=== PATIENT | female | born 2000 | race Caucasian/White ===

== ENCOUNTER 2021-06-01 10:12 | Inpatient (IN) | payer OTHER, SELFPAY ==
[~2021-06-01] VITALS: Ht 170.2 cm; Wt 70.3 kg
[2021-06-01 10:16] VITALS: BP 119/22
--- NOTE | 2021-06-01 10:39 | NUR ---
PATIENT PRESENTS TO ED WITH RUQ ABD PAIN RADIATING TO RIGHT FLANK AREA X10 DAYS . PATIENT DENIES ANY UTI SYMPTOMS SUCH DYSURIA OR FOUL SMELLING URINE .PATIENT IS ALSO EXPERIENCING A GENERALIZED BODY RASH X5 DAYS. DENIES N/V/D; ; AAOX4 WITH EVEN AND STEADY GAIT; LUNGS CLEAR BL; HR EVEN AND REGULAR; PT DENIES ANY FEVER, CP, SOB, OR COUGH AT THIS TIME; PATIENT STATES PAIN OF 6/10 AT THIS TIME; VSS; PATIENT POSITIONED FOR COMFORT; HOB ELEVATED; BEDRAILS UP X2; BED DOWN. ER MD MADE AWARE OF PT STATUS.
--- NOTE | 2021-06-01 10:48 | NUR ---
Dr. Nixon is evaluating the patient at bedside.
[2021-06-01] MEDS ORDERED: MORPHINE SULFATE 4 MG/ML SYR IVP ONE (10:50)
[2021-06-01] MEDS ORDERED: diphenhydrAMINE 50 MG/ML VIAL IVP ONE (10:50)
[2021-06-01] MEDS ORDERED: ONDANSETRON 4 MG/2 ML VIAL IVP ONE (10:50)
[2021-06-01 11:39] LABS: BASOPHILS % (AUTO) 0.4 % (0.0-2.0); EOSINOPHILS # (AUTO) 0.2 K/uL (0-0.4); EOSINOPHILS % (AUTO) 3.1 % (0.0-4.0); HEMATOCRIT 37.2 % (36-48); HEMOGLOBIN 12.7 g/dL (12.0-16.0); LYMPHOCYTES # (AUTO) 2.4 K/uL (2.5-16.5); LYMPHOCYTES % (AUTO) 43.9 % (20.5-51.1); MEAN CORPUSCULAR HEMOGLOBIN 30 pg (27-31); MEAN CORPUSCULAR HGB CONC 34 g/dL (33-37); MEAN CORPUSCULAR VOLUME 87.3 fL (80-94); MONOCYTES # (AUTO) 0.5 K/uL (0.8-1.0); MONOCYTES % (AUTO) 8.7 % (1.7-9.3); NEUTROPHILS # (AUTO) 2.4 K/uL (1.8-7.7); NEUTROPHILS % (AUTO) 43.9 % (42.2-75.2); PLATELET COUNT (AUTO) 250 K/uL (140-450); RED BLOOD CELL COUNT(AUTO) 4.26 MIL/uL (4.20-5.40); RED CELL DISTRIBUTION WIDTH 13.5 % (11.6-13.7); WHITE BLOOD COUNT (AUTO) 5.5 K/uL (4.8-10.8)
[2021-06-01 12:03] LABS: CARBON DIOXIDE 25.8 mmol/L (21-32); CREATININE 0.8 mg/dL (0.6-1.3); POTASSIUM 3.8 mmol/L (3.5-5.1)
[2021-06-01 12:18] LABS: ALBUMIN 3.5 g/dL (3.4-5.0)
[2021-06-01] MEDS ORDERED: cefTRIAXone 1,000 MG VIAL ONE (12:22)
--- NOTE | 2021-06-01 13:10 | NUR ---
PATIENT TAKEN TO CT AT THIS TIME
--- NOTE | 2021-06-01 13:18 | NUR ---
Patient returned from CT scan. RN reevaluating the patient at bedside.
[2021-06-01] MEDS ORDERED: ACETAMINOPHEN 325 MG TAB PO PRN (13:55)
[2021-06-01] MEDS ORDERED: KCL 20 MEQ/WATER INJ PREMIX 200 ML IV PRN (13:55)
[2021-06-01] MEDS ORDERED: MAGNESIUM OXIDE 400 MG TAB PO PRN (13:55)
[2021-06-01] MEDS ORDERED: MAG SULF 2000 MG/WATER PREMIX 50 ML IV PRN (13:55)
[2021-06-01] MEDS ORDERED: POTASSIUM CHLORIDE 10 MEQ TABER PO PRN (13:55)
[2021-06-01 14:42] LABS: APPEARANCE,URINE CLEAR (CLEAR); BILIRUBIN,URINE NEGATIVE (NEGATIVE); BLOOD, URINE NEGATIVE (NEGATIVE); COLOR,URINE YELLOW (YELLOW); LEUKOCYTE ESTERASE ,URINE NEGATIVE (NEGATIVE); NITRITE, URINE NEGATIVE (NEGATIVE); PH,URINE 5.5 (5.0-9.0); UGLUCOSE NEGATIVE (NEGATIVE)
--- NOTE | 2021-06-01 15:13 | NUR ---
RECEIVED TELEPHONE REPORT FROM ER NURSE FOR CONTINUITY OF CARE. PER ER NURSE, PT ALERT ORIENTED, NO PAST MEDICAL HISTORY. CC WITH RUQ PAIN RADIATED TO RIGHT FLANK X 10 DAYS. SKIN INTACT. IV TO LEFT AC 20G. GENERALIZED ITCHINESS ALL OVER THE BODY. BENADRYL, MORPHINE AND ZOFRAN GIVEN IN ER. WILL CHECK THE PATIENT WHEN PT ARRIVES.
--- NOTE | 2021-06-01 15:17 | NUR ---
Patient will be admitted to care of [facility]. Admited to [facility]. Will go to room 120. Belongings list completed. Report to FRANK BENAVIDEZ.
[2021-06-01 15:25] VITALS: BP 119/76
--- NOTE | 2021-06-01 15:25 | NUR ---
PATIENT ARRIVED THE FLOOR BY WHEELCHAIR, AT SIDE. PT AAOX4. RESPIRATORY EVEN UNLABORED ON RA. ABDOMEN TENDER, RIGHT UPPER QUADRANT MILD PAIN, NO PAIN MED NEEDED AT THIS TIME PER PT. SKIN WARM AND DRY, ITCHINESS, JAUNDICE. SCRATCHED NOTED AT LEFT ARM R/T ITCHINESS. IV TO LEFT AC 20G DRY AND CLEAN, PATENT. AMBULATORY. ORIENTED PATIENT TO THE HOSPITAL ENVIRONMENT, CALL LIGHT. VERBALIZED UNDERSTANDING. INFORMED PATIENT REGARDING THE NPO STATUS. MRSA NARES SAMPLE COLLECTED. V/S TAKEN. SAFETY MEASURES IN PLACE, WILL CONTINUE TO MONITOR.
[2021-06-01] MEDS: NACL 0.9% 1,000 ML IV SCH (15:59)
--- NOTE | 2021-06-01 17:25 | NUR ---
PATIENT CONCERNS ABOUT THE PLAN OF CARE. PER PATIENT, [facility] AND NO PROCEDURE DONE AND WAS SENT HOME. INFORMED DR. BATEMAN, PER DR. BATEMAN, WILL DISCUSS PLAN OF CARE IN DETAILS TOMORROW. PATIENT WAS INFORMED.
--- NOTE | 2021-06-01 19:18 | NUR ---
ENDORSED PATIENT TO SHOT HOLE SHOOTER RN FOR CONTINUITY OF CARE. PATIENT IN STABLE CONDITION.
--- NOTE | 2021-06-01 19:19 | NUR ---
RECEIVED BEDSIDE REPORT FROM DAY RN. PT IS ITALIAN SPEAKING ONLY. PT IS AAOX4. RESPIRATIONS ARE EQUAL AND UNLABORED ON ROOM AIR. LUNG SOUNDS ARE CLEAR. IV ON LAC 20G NS INFUSING AT 80ML/H. C/C ITCHINESS THROUGH OUT BODY WILL ADMIN PRN BENADRYL. PT WITH HEALING C-SEC FROM MARCH. DENIES PAIN. NPO AFTER MIDNIGHT FOR LAP JJ. POC DISCUSSED WITH PT. CALL LIGHT IS WITHIN REACH, WILL CONTINUE TO MONITOR.
[2021-06-01] MEDS: diphenhydrAMINE 50 MG/ML VIAL IVP PRN (19:24)
--- NOTE | 2021-06-01 19:24 | NUR ---
VSS. ADMIN PRN BENADRYL PT TOLERATED WELL. ALL NEEDS MET. CALL LIGHT IS WITHIN REACH.
[2021-06-01 20:00] VITALS: BP 121/82
--- NOTE | 2021-06-01 20:41 | NUR ---
ROUNDED ON PATIENT. PT APPEARS TO BE ASLEEP. CHEST RISE AND FALL NOTED. CALL LIGHT IS WITHIN REACH.
--- NOTE | 2021-06-01 22:02 | NUR ---
ROUNDS MADE. PT OBSERVED IN BED WITH EYES CLOSED APPEARS TO BE ASLEEP. CHEST RISE AND FALL NOTED. WILL CONTINUE TO MONITOR.
[2021-06-01] MEDS ORDERED: MAGNESIUM CITRATE 300 ML BTL PO SCH (22:15)
[2021-06-01] MEDS: MORPHINE SULFATE 4 MG/ML SYR IVP PRN (23:43)
--- NOTE | 2021-06-01 23:43 | NUR ---
VSS. PT WITH C/C OF ABD PAIN ADMIN PRN MORPHINE IV MED EDUCATION GIVEN. PT TOLERATED WELL. CALL LIGHT IS WITHIN REACH. ALL SAFETY MEASURES ARE IN PLACE. WILL CONTINUE TO MONITOR.
[2021-06-02] MEDS: LEVOFLOXACIN 750 MG/D5W PREMIX 150 ML IV SCH (01:44)
[2021-06-02] MEDS: diphenhydrAMINE 50 MG/ML VIAL IVP PRN (01:44)
--- NOTE | 2021-06-02 01:44 | NUR ---
ADMIN IVPB LEVAQUIN PER ORDERS, PRN BENADRYL GIVEN FOR C/C GEN ITCHINESS. MED EDUCATION GIVEN. WILL CONTINUE TO MONITOR.
[2021-06-02 04:00] VITALS: BP 114/77
[2021-06-02] MEDS: ONDANSETRON 4 MG/2 ML VIAL IVP PRN ×4 (04:08→23:22)
--- NOTE | 2021-06-02 04:08 | NUR ---
VSS. ADMIN ZOFRAN FOR C/C OF NAUSEA. ALL SAFETY MEASURES ARE IN PLACE. WILL CONTINUE TO MONITOR.
[2021-06-02] MEDS: NACL 0.9% 1,000 ML IV SCH ×3 (04:13→23:44)
[2021-06-02 06:20] LABS: BASOPHILS % (AUTO) 0.7 % (0.0-2.0); EOSINOPHILS # (AUTO) 0.2 K/uL (0-0.4); EOSINOPHILS % (AUTO) 3.7 % (0.0-4.0); HEMATOCRIT 35.9 % (36-48); HEMOGLOBIN 12.1 g/dL (12.0-16.0); LYMPHOCYTES # (AUTO) 2.2 K/uL (2.5-16.5); LYMPHOCYTES % (AUTO) 41.7 % (20.5-51.1); MEAN CORPUSCULAR HEMOGLOBIN 30 pg (27-31); MEAN CORPUSCULAR HGB CONC 34 g/dL (33-37); MEAN CORPUSCULAR VOLUME 87.8 fL (80-94); MONOCYTES # (AUTO) 0.5 K/uL (0.8-1.0); MONOCYTES % (AUTO) 8.9 % (1.7-9.3); NEUTROPHILS # (AUTO) 2.4 K/uL (1.8-7.7); PLATELET COUNT (AUTO) 251 K/uL (140-450); RED BLOOD CELL COUNT(AUTO) 4.09 MIL/uL (4.20-5.40); RED CELL DISTRIBUTION WIDTH 13.2 % (11.6-13.7); WHITE BLOOD COUNT (AUTO) 5.3 K/uL (4.8-10.8)
[2021-06-02 06:53] LABS: ALBUMIN 3.6 g/dL (3.4-5.0); ANION GAP 9.2 (8-16); CARBON DIOXIDE 27.9 mmol/L (21-32); CHOL/HDL RATIO 7.5 (1-4.5); CREATININE 0.7 mg/dL (0.6-1.3); MAGNESIUM 2.5 mg/dL (1.8-2.4); POTASSIUM 4.1 mmol/L (3.5-5.1)
--- NOTE | 2021-06-02 07:05 | NUR ---
RECEIVED REPORT FROM COTTRELL OPERATOR NURSE FOR CONTINUITY OF CARE. PATIENT AWAKE LAYING IN BED. BREATHING EVEN AN UNLABORED. ALL SAFETY MEASURES IN PLACE WILL CONTINUE TO MONITOR.
--- NOTE | 2021-06-02 07:31 | NUR ---
GAVE BEDSIDE REPORT TO DAY RN. PT ENDORSED IN STABLE CONDITION.
[2021-06-02 08:00] VITALS: BP 110/71
[2021-06-02] MEDS: MORPHINE SULFATE 4 MG/ML SYR IVP PRN ×4 (08:38→23:12)
[2021-06-02] MEDS: SENNA 8.6 MG TAB PO SCH ×3 (08:39→17:00)
--- NOTE | 2021-06-02 08:57 | NUR ---
PATIENT HAS BEEN SCREENED AND CATEGORIZED LOW NUTRITION RISK. PATIENT WILL BE SEEN WITHIN 7 DAYS OF ADMISSION. 06/08/[address]
--- NOTE | 2021-06-02 08:59 | NUR ---
PATIENT WAKE AND ALERT. BREATHING IS EVEN AN UNLABORED. ALL SAFETY MEASURES IN PLACE.
[2021-06-02] MEDS ORDERED: ENOXAPARIN 40 MG/0.4 ML SYR SUBQ SCH (09:00)
--- NOTE | 2021-06-02 10:25 | NUR ---
PATIENT AWAKE. NO ACUTE DISTRESS NOTED. AT BEDSIDE. ALL SAFETY MEASURES IN PLACE.
[2021-06-02 12:00] VITALS: BP 112/67
--- NOTE | 2021-06-02 12:00 | NUR ---
PATIENT CONTINUE NPO. PATIENT IS IN BED WATCHING TV NO CUTE DISTRESS NOTED.ALL SAFETY MEASURES IN PLACE.
--- NOTE | 2021-06-02 14:15 | NUR ---
PATIENT SITTING UP IN BED. BREATHING IS EVEN AND UNLABORED. ALL SAFETY MEASURES IN PLACE. WILL CONTINUE TO MONITOR.
--- NOTE | 2021-06-02 15:38 | NUR ---
DC PLANNING: SPOKE WITH PATIENT AT BEDSIDE. LIVES IN A SINGLE STORY HOUSE WITH HIS MOTHER AND AUNT. SEES DR OSORIO FOR PAIN MANAGEMENT OF HIS DILAUDID PAIN PUMP, WILL SEE HIM NEXT SATURDAY. ALSO HAS MULTIPLE SCLEROSIS AND IS ON DISABILITY, NO ADL DEFICITS, NO DC NEEDS IDENTIFIED. CM WILL CONTINUE TO FOLLOW FOR NEEDS.
--- NOTE | 2021-06-02 15:40 | NUR ---
DR. DIETZ AT BEDSIDE TALKING WITH PATIENT AND LIME SLUDGE KILN OPERATOR ON THE PHONE REGARDING ERCP PROCEDURE.
--- NOTE | 2021-06-02 15:41 | NUR ---
DC PLANNING: SPOKE WITH PATIENT AND SPOUSE AT BEDSIDE USING [email or web address]ITION REPRESENTATIVE [employer]. PATIENT LIVES WITH HER SPOUSE IN A SINGLE STORY HOUSE, HAS A 2 MONTH OLD INFANT AT HOME. ASSISTANCE IS PROVIDED BY HER SISTER IN LAW, COUSIN AND AUNT. NO ADL DEFICITS, NO DC NEEDS IDENTIFIED. CM WILL CONTINUE TO FOLLOW FOR NEEDS.
--- NOTE | 2021-06-02 15:55 | NUR ---
PATIENT TAKEN TO ERCP PROCEDURE VIA [facility]URNEY[facility]
[2021-06-02] MEDS ORDERED: MIDAZOLAM 2 MG/2 ML VIAL ONE ×2 (16:01→18:00)
[2021-06-02] MEDS ORDERED: fentaNYL citrate 0.05 MG/ML VIAL ONE ×2 (16:01→18:00)
[2021-06-02] MEDS ORDERED: PROPOFOL 200 MG/20 ML VIAL IV ONE ×5 (16:02→18:00)
[2021-06-02] MEDS ORDERED: GLUCAGON 1 MG VIAL ONE ×2 (16:47→18:00)
[2021-06-02] MEDS ORDERED: ONDANSETRON 4 MG/2 ML VIAL IVP PRN (17:30)
[2021-06-02] MEDS ORDERED: HYDROmorphone 1 MG/ML AMP IVP PRN (17:30)
[2021-06-02] MEDS: LACTATED RINGERS 1,000 ML IV SCH (17:30)
[2021-06-02] MEDS ORDERED: MEPERIDINE 25 MG/ML SYR IVP PRN (17:30)
[2021-06-02] MEDS ORDERED: diphenhydrAMINE 50 MG/ML VIAL IVP PRN (17:30)
--- NOTE | 2021-06-02 17:45 | NUR ---
PATIENT RETURN FROM ERCP PROCEDURE. PATIENT VS STABLE. PATIENT STATE FEELING NAUSEAS OFFERED ZOFRAN. ALL SAFETY MEASURES IN PLACE. WILL CONTINUE TO MONITOR.
--- NOTE | 2021-06-02 18:30 | NUR ---
PATIENT REQUEST PAIN MEDICATION FOR SYMONE LEVEL 7 OUT OF 10. VS REMAIN STABLE. BREATHING IS EVEN AND UNLABORED. ALL SAFETY MEASURES IN PLACE WILL CONTINUE TO MONITOR.
--- NOTE | 2021-06-02 19:26 | NUR ---
ENDORSED TO LEAD QA ANALYST NURSE OF CONTINUITY OF CARE. PATIENT STABLE.
[2021-06-02 20:00] VITALS: BP 130/70
[2021-06-02] MEDS ORDERED: MAGNESIUM CITRATE 300 ML BTL PO SCH (21:00)
[2021-06-03 00:28] VITALS: BP 125/65
--- NOTE | 2021-06-03 00:50 | NUR ---
at 2323 she c/o of severe abd pain and nausea gave her morphine and zofran with good effect and at mn she signed the consent for surgery after transllation by the roommate
[2021-06-03] MEDS: LEVOFLOXACIN 750 MG/D5W PREMIX 150 ML IV SCH (01:06)
[2021-06-03] MEDS: LACTATED RINGERS 1,000 ML IV SCH (02:13)
[2021-06-03 05:58] LABS: BASOPHILS % (AUTO) 0.5 % (0.0-2.0); EOSINOPHILS # (AUTO) 0.1 K/uL (0-0.4); EOSINOPHILS % (AUTO) 1.4 % (0.0-4.0); HEMATOCRIT 34.9 % (36-48); HEMOGLOBIN 11.8 g/dL (12.0-16.0); LYMPHOCYTES # (AUTO) 2.4 K/uL (2.5-16.5); LYMPHOCYTES % (AUTO) 41.3 % (20.5-51.1); MEAN CORPUSCULAR HEMOGLOBIN 30 pg (27-31); MEAN CORPUSCULAR HGB CONC 34 g/dL (33-37); MEAN CORPUSCULAR VOLUME 87.7 fL (80-94); MONOCYTES # (AUTO) 0.5 K/uL (0.8-1.0); MONOCYTES % (AUTO) 8.7 % (1.7-9.3); NEUTROPHILS # (AUTO) 2.8 K/uL (1.8-7.7); NEUTROPHILS % (AUTO) 48.1 % (42.2-75.2); PLATELET COUNT (AUTO) 234 K/uL (140-450); RED BLOOD CELL COUNT(AUTO) 3.98 MIL/uL (4.20-5.40); RED CELL DISTRIBUTION WIDTH 13.5 % (11.6-13.7); WHITE BLOOD COUNT (AUTO) 5.8 K/uL (4.8-10.8)
[2021-06-03 06:44] LABS: ALBUMIN 3.5 g/dL (3.4-5.0); ANION GAP 13.5 (8-16); CARBON DIOXIDE 25.5 mmol/L (21-32); CREATININE 0.9 mg/dL (0.6-1.3); MAGNESIUM 2.2 mg/dL (1.8-2.4); TOTAL BILIRUBIN 2.1 mg/dL (0.0-1.0)
[2021-06-03 06:57] VITALS: BP 126/59
--- NOTE | 2021-06-03 07:00 | NUR ---
pain and naseusea was well controlled , vss iv came out started a new one on rt hand g 22 ivf reconnected
[2021-06-03] MEDS: CHOLESTYRAMINE 4 GM/9 GM PKT PO SCH ×2 (09:42→16:30)
[2021-06-03] MEDS: SENNA 8.6 MG TAB PO SCH ×3 (09:42→17:00)
--- NOTE | 2021-06-03 09:54 | NUR ---
alert, oriented, and appropriate, no complaint of abdominal pain when seen this am. Seen by dr Cates, NPO with ivf running continuously, pastora cook scheduled for this am, no time announcement yet.
[2021-06-03 10:06] VITALS: BP 119/69
[2021-06-03] MEDS ORDERED: MEPERIDINE 25 MG/ML SYR IVP PRN (13:40)
[2021-06-03] MEDS ORDERED: diphenhydrAMINE 50 MG/ML VIAL IVP PRN (13:40)
[2021-06-03] MEDS ORDERED: ONDANSETRON 4 MG/2 ML VIAL IVP PRN (13:40)
[2021-06-03] MEDS ORDERED: BUPIVACAINE-MPF/EPI 0.25% 30 ML VIAL INJ ONE (13:48)
[2021-06-03] MEDS ORDERED: LIDOCAINE 1% 500 MG/50 ML VIAL ONE (13:48)
[2021-06-03] MEDS ORDERED: SUCCINYLCHOLINE CHLORIDE 200 MG/10 ML VIAL IVP ONE (13:49)
[2021-06-03] MEDS ORDERED: fentaNYL citrate 0.05 MG/ML VIAL ONE ×2 (13:49→16:05)
[2021-06-03] MEDS ORDERED: MEPERIDINE 25 MG/ML SYR ONE ×2 (13:49→14:35)
[2021-06-03] MEDS ORDERED: ROCURONIUM 50 MG/5 ML VIAL IV ONE (13:49)
[2021-06-03] MEDS ORDERED: LIDOCAINE MPF 2% 100 MG/5 ML VIAL INJ ONE (13:49)
[2021-06-03] MEDS ORDERED: PROPOFOL 200 MG/20 ML VIAL IV ONE (13:49)
[2021-06-03] MEDS ORDERED: NEOSTIGMINE 1:1000 10 MG/10 ML VIAL ONE (13:50)
[2021-06-03] MEDS ORDERED: KETOROLAC 30 MG/ML VIAL ONE ×2 (13:50→14:35)
[2021-06-03] MEDS ORDERED: ONDANSETRON 4 MG/2 ML VIAL ONE (13:50)
[2021-06-03] MEDS ORDERED: METOCLOPRAMIDE 10 MG/2 ML INJ VIAL ONE (13:50)
[2021-06-03] MEDS ORDERED: GLYCOPYRROLATE 0.2 MG/ML VIAL ONE (13:50)
[2021-06-03] MEDS ORDERED: DEXAMETHASONE 4 MG/ML VIAL ONE (13:50)
[2021-06-03] MEDS ORDERED: NACL 0.9% 1,000 ML IV SCH (15:20)
[2021-06-03] MEDS ORDERED: ESMOLOL 10 ML IV ONE (15:41)
[2021-06-03] MEDS: NACL 0.9% 1,000 ML IV SCH (15:55)
[2021-06-03] MEDS: fentaNYL citrate 0.05 MG/ML VIAL IVP PRN ×4 (16:08→16:38)
[2021-06-03] MEDS: MORPHINE SULFATE 4 MG/ML SYR IVP PRN ×2 (17:22→21:28)
[2021-06-03 17:32] VITALS: BP 120/72
--- NOTE | 2021-06-03 17:38 | NUR ---
1700 back from recovery, alert, awake, complained of pain on incisional sites (x 3 with derma chew ), and " felt nauseated clear liquid offered, and morphine 4mg , zofran 4mg ivp given at the same time.
[2021-06-03 18:04] VITALS: BP 111/63
[2021-06-03 18:38] VITALS: BP 115/71
--- NOTE | 2021-06-03 20:00 | NUR ---
PATIENT COMPLAINT OF PAIN DUE TO SURGERY 07/04, MEDICATED WITH MORPHINE 4 MG IVP.
--- NOTE | 2021-06-03 20:00 | NUR ---
PATIENT WAS RECEIVED IN BED AWAKE AND ALERT WITH NO S/S OF ACUTE DISTRESS AT THIS TIME.
--- NOTE | 2021-06-04 | NUR ---
PATIENT MADE HIS MIDNIGHT ROUNDING PATIENT WAS CALMLY ASLEEP
[2021-06-04] MEDS: LEVOFLOXACIN 750 MG/D5W PREMIX 150 ML IV SCH (00:40)
[2021-06-04 04:00] VITALS: BP 115/66
[2021-06-04] MEDS: MORPHINE SULFATE 4 MG/ML SYR IVP PRN ×2 (04:02→08:29)
[2021-06-04] MEDS: ONDANSETRON 4 MG/2 ML VIAL IVP PRN ×2 (04:12→08:17)
[2021-06-04] MEDS: NACL 0.9% 1,000 ML IV SCH (04:50)
[2021-06-04 06:23] LABS: ALBUMIN 3.3 g/dL (3.4-5.0); ANION GAP 12.1 (8-16); CARBON DIOXIDE 25.8 mmol/L (21-32); CREATININE 0.8 mg/dL (0.6-1.3); MAGNESIUM 1.9 mg/dL (1.8-2.4); POTASSIUM 3.9 mmol/L (3.5-5.1); TOTAL BILIRUBIN 1.8 mg/dL (0.0-1.0)
[2021-06-04 06:49] LABS: BASOPHILS % (AUTO) 0.4 % (0.0-2.0); EOSINOPHILS % (AUTO) 0.4 % (0.0-4.0); HEMATOCRIT 32.4 % (36-48); HEMOGLOBIN 10.9 g/dL (12.0-16.0); LYMPHOCYTES # (AUTO) 1.8 K/uL (2.5-16.5); LYMPHOCYTES % (AUTO) 27.7 % (20.5-51.1); MEAN CORPUSCULAR HEMOGLOBIN 30 pg (27-31); MEAN CORPUSCULAR HGB CONC 34 g/dL (33-37); MEAN CORPUSCULAR VOLUME 88.7 fL (80-94); MONOCYTES # (AUTO) 0.4 K/uL (0.8-1.0); MONOCYTES % (AUTO) 6.4 % (1.7-9.3); NEUTROPHILS # (AUTO) 4.1 K/uL (1.8-7.7); NEUTROPHILS % (AUTO) 65.1 % (42.2-75.2); PLATELET COUNT (AUTO) 250 K/uL (140-450); RED BLOOD CELL COUNT(AUTO) 3.66 MIL/uL (4.20-5.40); RED CELL DISTRIBUTION WIDTH 13.1 % (11.6-13.7); WHITE BLOOD COUNT (AUTO) 6.3 K/uL (4.8-10.8)
[2021-06-04] MEDS: CHOLESTYRAMINE 4 GM/9 GM PKT PO SCH (06:55)
--- NOTE | 2021-06-04 07:12 | NUR ---
REPORTS WERE ALL GIVEN, TRANSFER OF CARE ENDORSED.
--- NOTE | 2021-06-04 07:13 | NUR ---
RECEIVED REPORT FROM FLOATLIGHT LOADING SUPERVISOR NURSE AT BEDSIDE FOR CONTINUITY OF CARE. PATIENT AWAKE AND ALERT, AMBULATING FROM BATHROOM, AT BEDSIDE. IV SITE INTACT, ASYMPTOMATIC, PATENT, INFUSING IVF WELL. BREATHING EVEN AN UNLABORED ON ROOM AIR. ALL SAFETY MEASURES IN PLACE WILL CONTINUE TO MONITOR.
[2021-06-04] MEDS ORDERED: SIMETHICONE 80 MG TAB.CHEW PO PRN (08:05)
--- NOTE | 2021-06-04 08:05 | NUR ---
PT C/O PAIN ON RT NECK AND PAIN FROM GAS, UNABLE TO PASS GAS OR HAVE BM YET. PAGED DR. BATEMAN FOR ORDER. HE CALLED BACK, NEW ORDER IN. ORDERED NOTED AND WILL BE CARRIED OUT. WILL CONTINUE TO MONITOR PATIENT.
[2021-06-04 08:15] VITALS: BP 125/68
[2021-06-04] MEDS: SENNA 8.6 MG TAB PO SCH (08:29)
[2021-06-04] MEDS ORDERED: HYDROcodone/APAP 5/325 MG 1 TAB TAB PO PRN (10:25)
--- NOTE | 2021-06-04 11:07 | NUR ---
DR. BATEMAN IN TO SPEAK TO PATIENT. PT STATED THAT PREVIOUS HOSPITALIZATION AT [facility] FOR CSECTION, PT HAD SIMILAR PAIN PROBLEMS AND WAS PRESCRIBED MEDICATION FOR THE GAS, PT AND FAMILY MEMBER DO NOT RECALL. CALLED [facility] ON [address]. NO ANSWER, PHARMACY CLOSED TODAY. INFORMED DR. BATEMAN.
[2021-06-04] MEDS ORDERED: QUEPKT PO (11:55)
[2021-06-04] MEDS ORDERED: SIME80CT43 PO (11:55)
[2021-06-04] MEDS ORDERED: ACET-1182 PO (11:55)
--- NOTE | 2021-06-04 13:25 | NUR ---
Patient wheeled out to be discharged home with . Patient in stable condition. Took all her belongings wit her.
== END 2021-06-04 13:25 | disposition home or self-care (01) | DRG 263 ==
LOC: MED 10:12 → MTU 13:53
PROVIDERS: ADMIT Internal Medicine; ATTEND Internal Medicine
PROC: 0F798ZZ Dilation of Common Bile Duct, Via Natural or Artificial Opening Endoscopic (ICD-10-PCS; 2021-06-02)
PROC: BF101ZZ Fluoroscopy of Bile Ducts using Low Osmolar Contrast (ICD-10-PCS; 2021-06-02)
PROC: 0FT44ZZ Resection of Gallbladder, Percutaneous Endoscopic Approach (ICD-10-PCS; principal; 2021-06-03 09:00)
DX: K80.61 Calculus of gallbladder and bile duct with cholecystitis, unspecified, with obstruction (principal); K85.10 Biliary acute pancreatitis without necrosis or infection; Z20.822 Contact with and (suspected) exposure to COVID-19; E78.1 Pure hyperglyceridemia
CPT/HCPCS: 36415; 76705; 80053; 81003; 82150; 82374; 83036; 83605; 83690; 83735; 85025; 86886; 86900; 86901; 87040; 87081; 96365; 96375; 99285; C1727; C1769; J0330; J0696; J1100; J1200; J1610; J1885; J1956; J2001; J2175; J2250; J2270; J2405; J2704; J2710; J2765; J3010; J3490; J7030; J7060; J7120

== ENCOUNTER 2023-03-03 02:00 | Inpatient (IN) | payer OTHER ==
[~2023-03-03] VITALS: Ht 172.7 cm; Wt 108.9 kg
[~2023-03-03 02:00] MED LIST: ACET-1182 PO; QUEPKT PO; SIME80TA34 PO
[2023-03-03 02:10] VITALS: BP 137/106
--- NOTE | 2023-03-03 02:16 | NUR ---
TO BR FOR UA FOLLOWING TRIAGE, THEN TO BED
--- NOTE | 2023-03-03 02:24 | NUR ---
WLAKED URINE TO LAB.
--- NOTE | 2023-03-03 02:26 | NUR ---
Dr. Roach by bedside at this time
[2023-03-03] MEDS ORDERED: NACL 0.9% 1,000 ML IV SCH (02:30)
[2023-03-03] MEDS ORDERED: KETOROLAC 30 MG/ML VIAL IVP ONE (02:30)
--- NOTE | 2023-03-03 02:34 | NUR ---
c/o 8/10 lower abd pain that radiates to upper abd. per pt, last menstrual period 2 yrs ago and she has an IUD placed. hx gallbladder surgery, denies allergies.
[2023-03-03 02:35] LABS: APPEARANCE,URINE HAZY (CLEAR); BILIRUBIN,URINE NEGATIVE (NEGATIVE); BLOOD, URINE NEGATIVE (NEGATIVE); COLOR,URINE YELLOW (YELLOW); LEUKOCYTE ESTERASE ,URINE NEGATIVE (NEGATIVE); NITRITE, URINE NEGATIVE (NEGATIVE); PH,URINE 7.5 (5.0-9.0); UGLUCOSE NEGATIVE (NEGATIVE)
[2023-03-03 02:46] LABS: BASOPHILS % (AUTO) 0.4 % (0.0-2.0); EOSINOPHILS # (AUTO) 0.2 K/uL (0-0.4); EOSINOPHILS % (AUTO) 1.8 % (0.0-4.0); HEMATOCRIT 37.9 % (36-48); HEMOGLOBIN 12.7 g/dL (12.0-16.0); LYMPHOCYTES # (AUTO) 3.8 K/uL (2.5-16.5); LYMPHOCYTES % (AUTO) 34.7 % (20.5-51.1); MEAN CORPUSCULAR HEMOGLOBIN 28 pg (27-31); MEAN CORPUSCULAR HGB CONC 33 g/dL (33-37); MEAN CORPUSCULAR VOLUME 84.5 fL (80-94); MONOCYTES # (AUTO) 0.9 K/uL (0.8-1.0); MONOCYTES % (AUTO) 7.7 % (1.7-9.3); NEUTROPHILS # (AUTO) 6.1 K/uL (1.8-7.7); NEUTROPHILS % (AUTO) 55.4 % (42.2-75.2); PLATELET COUNT (AUTO) 297 K/uL (140-450); RED BLOOD CELL COUNT(AUTO) 4.49 MIL/uL (4.20-5.40); RED CELL DISTRIBUTION WIDTH 13.6 % (11.6-13.7)
--- NOTE | 2023-03-03 02:47 | NUR ---
pt taken to CT
[2023-03-03 02:53] LABS: RBC,URINE NONE SEEN /HPF (0-5); WBC,URINE 0-5 /HPF (0-5)
[2023-03-03 03:02] LABS: ALBUMIN 3.7 g/dL (3.4-5.0); ANION GAP 13.6 (8-16); CARBON DIOXIDE 29.1 mmol/L (21-32); CREATININE 0.8 mg/dL (0.6-1.3); POTASSIUM 3.7 mmol/L (3.5-5.1); TOTAL BILIRUBIN 0.2 mg/dL (0.0-1.0)
--- NOTE | 2023-03-03 05:42 | NUR ---
Pt resting comfortably at this time, stated she has relief from abdominal pain
--- NOTE | 2023-03-03 07:31 | NUR ---
report given to Vida BENAVIDEZ
--- NOTE | 2023-03-03 07:31 | NUR ---
REPORT RECEIVED FROM ZIA BENAVIDEZ, RECEIVED PT IN BED, STATING SLIGHT NAUSEA, PT CHANGED INTO A GOWN AND PLACED ON OTM CONSULTANT. PT STATES LAST MEAL/DRINK YESTERDAY AT 7-8PM.
[2023-03-03] MEDS ORDERED: NACL 0.9% 1,000 ML IV ONE (08:05)
[2023-03-03] MEDS ORDERED: MORPHINE SULFATE 4 MG/ML SYR IVP ONE ×3 (08:05→12:40)
[2023-03-03] MEDS ORDERED: ONDANSETRON 4 MG/2 ML VIAL IVP ONE ×3 (08:05→12:40)
--- NOTE | 2023-03-03 08:54 | NUR ---
ANESTHESIA AT BEDSIDE FOR EVAL
--- NOTE | 2023-03-03 10:07 | NUR ---
Request by surgeon Eric Rubio to transfer patient, per his statement due to inadequate OR staffing. General Assignment Reporter left messages for both after hours [facility] [employer]er [employer] (patients primary insurance), Ricardo @ [phone] and [phone], and for [employer] @ [phone] asking for authorization for transfer. General Assignment Reporter also faxed clinical packet with request for transfer to [facility]. Spoke with [facility] General Assignment Reporter Taylor Suarez who spoke with her surgery Director who is states that the process for staffing and instrument cleaning and processing is the same at [facility] and questions need for transfer. General Assignment Reporter also spoke with Shawn at [facility] [place], clinical packet faxed to her, Shawn states that even if the patient is accepted [facility] authorization is needed before the patient can be transferred.
--- NOTE | 2023-03-03 12:40 | NUR ---
PT WITH CONTINUED PAIN IN THE RLQ, DR AGUILAR MADE AWARE, ON THE ELASTIC ASSEMBLER
[2023-03-03] MEDS ORDERED: PIPERACILLIN/TAZOBACTAM 3.375 GM in DEXTROSE 5% 50 ML IV ONE (13:20)
[2023-03-03] MEDS ORDERED: PIPERACILLIN/TAZOBACTAM 3.375 GM VIAL IV ONE (14:02)
[2023-03-03] MEDS ORDERED: POTASSIUM CHLORIDE 10 MEQ TABER PO PRN (14:10)
[2023-03-03] MEDS ORDERED: HYDROcodone/APAP 5/325 MG 1 TAB TAB PO PRN (14:10)
[2023-03-03] MEDS ORDERED: ACETAMINOPHEN 325 MG TAB PO PRN (14:10)
[2023-03-03] MEDS ORDERED: MAGNESIUM OXIDE 400 MG TAB PO PRN (14:10)
--- NOTE | 2023-03-03 14:22 | NUR ---
Patient will be admitted to care of [facility]. Admited to [facility]. Will go to room 106A. Belongings list completed. Report to PAM BENAVIDEZ.
[2023-03-03] MEDS: DEXT 5% /NACL 0.9% 1,000 ML IV SCH (14:30)
[2023-03-03 16:00] VITALS: BP 118/75
--- NOTE | 2023-03-03 16:16 | NUR ---
RECEIVED REPORT OVER THE PHONE FROM THE ER NURSE TAKING CARE OF THE PATIENT. PT WAS WHEELED OVER IN A WHEELCHAIR BUT PATIENT WAS ABLE TO AMBULATE TO BEDSIDE ONCE AT THE ROOM. T WAS STABLE UPON TRANSPORT, ON ROOM AIR, SKIN IS INTACT, AND PT HAS BEEN NPO SINCE YESTERDAY AT 10PM. PT COMPLAINS ON LOWER ABDOMEN PAIN BUT HAS NOT PROBLE URINATING OR HAVING A BOWEL MOVEMENT. PT HAS A 20G IV IN HER L AC THAT IS RUNNING D5/NS @80ML/HR. ALL SAFETY MEASURES IN PLACE INCLUDING BED IN LOW POSITION AND CALL LIGHT WITHIN REACH.
[2023-03-03] MEDS: MORPHINE SULFATE 4 MG/ML SYR IVP PRN (17:02)
[2023-03-03] MEDS ORDERED: cefTRIAXone 1,000 MG VIAL ONE (17:05)
--- NOTE | 2023-03-03 19:18 | NUR ---
ENDORSED PT TO BROKERAGE BRANCH MANAGER NURSE FOR CONTINUITY OF CARE. PT STABLE AT THIS TIME.
--- NOTE | 2023-03-03 19:19 | NUR ---
RECEIVED ENDORSEMENT FROM DAY SHIFT NURSE FOR CONTINUITY OF CARE. PT IS AWAKE, ALERT AND VERBALLY RESPONSIVE IN MAORI. IV ON LEFT AC INTACT AND PATENT. IV FLUID D5NS IS INFUSING WELL AT 80 ML/HR. PT IS ON CLEAR LIQUID DIET AND WILL BE NPO AFTER MIDNIGHT FOR SURGERY PLAN PROCEDURE TOMORROW. SKIN IS INTACT, DRY AND WARM.
[2023-03-03 20:00] VITALS: BP 114/73
[2023-03-03] MEDS: ONDANSETRON 4 MG/2 ML VIAL IVP PRN (20:23)
--- NOTE | 2023-03-03 20:23 | NUR ---
PT COMPLAINTS OF FEELING NAUSEA, MEDICATION ZOFRAN ADMINISTERED ORDER.
--- NOTE | 2023-03-03 20:25 | NUR ---
PT COMPLAINTS OF ABDOMINAL PAIN 05/04, PAIN MEDICATION NORCO ADMINISTERED ORDER.
[2023-03-03] MEDS: metroNIDAZOLE 500 MG/NS PREMIX 100 ML IV SCH (20:32)
--- NOTE | 2023-03-03 21:23 | NUR ---
PT IS ASLEEP, NO NOTED GAGGING.
--- NOTE | 2023-03-03 21:25 | NUR ---
PT IS ASLEEP AND NOTED RELAX, PAIN MEDICATION IS EFFECTIVE.
[2023-03-04] VITALS: BP 118/75
--- NOTE | 2023-03-04 | NUR ---
PT IS NPO AFTER MIDNIGHT, FOR SURGERY PROCEDURE.
[2023-03-04] MEDS: MORPHINE SULFATE 4 MG/ML SYR IVP PRN ×4 (01:25→21:02)
--- NOTE | 2023-03-04 01:25 | NUR ---
PT COMPLAINTS OF RIGHT ABDOMINAL PAIN 08/04, PAIN MEDICATION MORPHINE ADMINISTERED ORDER.
[2023-03-04] MEDS: ONDANSETRON 4 MG/2 ML VIAL IVP PRN ×2 (01:27→06:12)
--- NOTE | 2023-03-04 01:27 | NUR ---
PT COMPLAINTS OF NAUSEA, PT VOMITS SOME AMOUNT OF CLEAR STOMACH FLUIDS CONTENT. ZOFRAN ADMINISTERED ORDER.
--- NOTE | 2023-03-04 02:25 | NUR ---
REASSESSMENT OF PAIN, PT IS ASLEEP, NO FACIAL GRIMACING. PT NOTED RELAX.
--- NOTE | 2023-03-04 02:27 | NUR ---
PT IS ASLEEP, NO NAUSEA/GAGGING OR VOMITING PRESENT AT THIS TIME.
[2023-03-04] MEDS: DEXT 5% /NACL 0.9% 1,000 ML IV SCH ×2 (02:52→15:10)
[2023-03-04 04:00] VITALS: BP 125/77
[2023-03-04] MEDS: metroNIDAZOLE 500 MG/NS PREMIX 100 ML IV SCH ×3 (05:01→21:18)
--- NOTE | 2023-03-04 06:09 | NUR ---
PT COMPLAINTS OF RIGHT ABDOMINAL PAIN 08/04, PAIN MEDICATION MORPHINE ADMINISTERED ORDER.
--- NOTE | 2023-03-04 06:12 | NUR ---
PT COMPLAINTS OF NAUSEA, NOTED GAGGING. NAUSEA MEDICATION ZOFRAN, ADMINISTERED ORDERED.
--- NOTE | 2023-03-04 07:15 | NUR ---
RECEIVED REPORT FROM FREIGHT BRAKE OPERATOR ELLEN FOR CONTINUITY OF CARE. INITIAL ASSESSMENT DONE. PT REMAINS NPO AFTER MIDNIGHT FOR SURGERY AT 1000 AM. IVF INFUSING WELL. REMAINS ON NPO FOR SURGERY. NOT IN ANY DISTRESS NOTED. CALL LIGHT KEPT WITHIN REACH. WILL CONTINUE TO MONITOR.
--- NOTE | 2023-03-04 07:26 | NUR ---
PT IS ON STABLE CONDITION, NO SOB OR DISTRESS. NO FACIAL GRIMACING. NECESSARY SAFETY MEASURES ARE IN PLACE. ENDORSED TO DAY SHIFT NURSE CAMERON FOR CONTINUITY OF CARE.
[2023-03-04 08:26] LABS: ANION GAP 13.2 (8-16); CREATININE 0.7 mg/dL (0.6-1.3); POTASSIUM 4.2 mmol/L (3.5-5.1); TOTAL BILIRUBIN 0.5 mg/dL (0.0-1.0)
--- NOTE | 2023-03-04 09:29 | NUR ---
PATIENT HAS BEEN SCREENED AND CATEGORIZED MODERATE NUTRITION RISK. PATIENT WILL BE SEEN WITHIN 3-5 DAYS OF ADMISSION. REVIEWED BY ASA SHEEHAN RD
--- NOTE | 2023-03-04 09:43 | NUR ---
PT OFF UNIT. SCHEDULED FOR SURGERY. RESERVATION MANAGER BY ADI BENAVIDEZ FROM OR. REMAINS STABLE.
[2023-03-04] MEDS ORDERED: LIDOCAINE MPF 1% 10 ML ONE (09:47)
[2023-03-04] MEDS ORDERED: BUPIVACAINE-MPF/EPI 0.25% 10 ML VIAL INJ ONE (09:47)
[2023-03-04] MEDS ORDERED: LIDOCAINE MPF 1% 5 ML ONE (11:02)
[2023-03-04] MEDS ORDERED: SEVOFLURANE 250 ML BTL INH ONE (11:07)
[2023-03-04] MEDS ORDERED: fentaNYL citrate 0.05 MG/ML VIAL ONE (11:14)
[2023-03-04] MEDS ORDERED: HYDROcodone/APAP 5/325 MG 1 TAB TAB PO PRN (11:15)
[2023-03-04] MEDS ORDERED: PROPOFOL 200 MG/20 ML VIAL IV ONE ×2 (11:55)
[2023-03-04] MEDS ORDERED: ROCURONIUM 50 MG/5 ML VIAL IV ONE (11:55)
[2023-03-04] MEDS ORDERED: SUCCINYLCHOLINE CHLORIDE 200 MG/10 ML VIAL IVP ONE (11:55)
[2023-03-04] MEDS ORDERED: GLYCOPYRROLATE 0.2 MG/ML VIAL ONE ×5 (11:56)
[2023-03-04] MEDS ORDERED: KETOROLAC 30 MG/ML VIAL ONE (11:56)
[2023-03-04] MEDS ORDERED: NEOSTIGMINE 1:1000 10 MG/10 ML VIAL ONE (11:56)
[2023-03-04] MEDS ORDERED: ONDANSETRON 4 MG/2 ML VIAL ONE (11:56)
[2023-03-04] MEDS ORDERED: HYDROmorphone PFS 2 MG/ML SYR ONE (12:10)
[2023-03-04] MEDS: LACTATED RINGERS 1,000 ML IV SCH ×2 (12:10→13:05)
[2023-03-04] MEDS ORDERED: LABETALOL 20 MG/4 ML VIAL IVP PRN (12:11)
[2023-03-04] MEDS ORDERED: hydrALAZINE 20 MG/ML VIAL IVP PRN (12:11)
[2023-03-04] MEDS ORDERED: METOCLOPRAMIDE 10 MG/2 ML INJ VIAL IVP PRN (12:11)
[2023-03-04] MEDS: HYDROmorphone 1 MG/ML AMP IVP PRN ×5 (12:18→18:34)
--- NOTE | 2023-03-04 13:08 | NUR ---
PT RETURN FROM SURGERY. REPORT RECEIVED BY ADI BENAVIDEZ FROM OR. ON S/P LAPAROSCOPIC APPENDECTOMY WITH 3 INCISIONS. NO REDNESS, NO BLEEDING NOTED. NOT IN ANY DISTRESS NOTED. C/O PAIN 5/10. WILL CONTINUE TO MONITOR.
--- NOTE | 2023-03-04 14:04 | NUR ---
FLAGYL IV WAS GIVEN BY DILMA BENAVIDEZ. TOLERATING WELL.
--- NOTE | 2023-03-04 14:56 | NUR ---
PRN MORPHINE IVP WAS GIVEN BY DILMA BENAVIDEZ. TOLERATING WELL.
[2023-03-04 16:00] VITALS: BP 120/68
--- NOTE | 2023-03-04 18:34 | NUR ---
PRN DILAUDID IVP FOR PAIN MANAGEMENT WAS GIVEN BY SOY BENAVIDEZ. TOLERATING WELL.
--- NOTE | 2023-03-04 19:30 | NUR ---
REPORT GIVEN TO DIXIE FOR CONTINUITY OF CARE. REMAINS STABLE.
--- NOTE | 2023-03-04 19:31 | NUR ---
RECEIVES PT ENDORSEMENT FROM DAY SHIFT NURSE. PT HAD SURGERY PROCEDURE OF LAPARASCOPY APPENDECTOMY. PT IS ON STABLE CONDITION WITH PAIN ON THE ABDOMINAL AREA, PAIN ON INCISION AREA.
[2023-03-04 20:00] VITALS: BP 127/73
--- NOTE | 2023-03-04 20:00 | NUR ---
SURGERY SITE ON ABDOMEN IS CLEAN AND DRY, NO DRESSING COVERED THE INCISIONS.
--- NOTE | 2023-03-04 21:02 | NUR ---
PT COMPLAINTS OF SURGICAL PAIN ON ABDOMINAL AREA 05/04, PAIN MEDICATION MORPHINE ADMINISTERED ORDER.
--- NOTE | 2023-03-04 22:02 | NUR ---
PT IS ASLEEP, NO FACIAL GRIMACING.
--- NOTE | 2023-03-05 03:00 | NUR ---
PT ABLE AMBULATES TO REST ROOM WITH SUPERVISION.
[2023-03-05] MEDS: HYDROmorphone 1 MG/ML AMP IVP PRN (03:13)
--- NOTE | 2023-03-05 03:13 | NUR ---
PT COMPLAINTS OF ABDOMINAL PAIN ON SURGERY SITE, PAIN MEDICATION DILAUDID ADMINISTERED ORDER.
[2023-03-05] MEDS: DEXT 5% /NACL 0.9% 1,000 ML IV SCH (03:40)
--- NOTE | 2023-03-05 04:13 | NUR ---
PT IS ASLEEP.
[2023-03-05] MEDS: metroNIDAZOLE 500 MG/NS PREMIX 100 ML IV SCH ×2 (05:02→13:00)
--- NOTE | 2023-03-05 07:30 | NUR ---
RECEIVED REPORT FROM SHEET METAL JOURNEYMAN FOR CONTINUITY OF CARE. INITIAL ASSESSMENT DONE. IVF INFUSING WELL. NOT IN ANY DISTRESS NOTED. CALL LIGHT KEPT WITHIN REACH. WILL CONTINUE TO MONITOR.
[2023-03-05 07:44] LABS: ALBUMIN 2.9 g/dL (3.4-5.0); ANION GAP 11.1 (8-16); CARBON DIOXIDE 27.5 mmol/L (21-32); CREATININE 0.7 mg/dL (0.6-1.3); POTASSIUM 3.6 mmol/L (3.5-5.1); TOTAL BILIRUBIN 0.3 mg/dL (0.0-1.0)
[2023-03-05 08:00] VITALS: BP 119/72
--- NOTE | 2023-03-05 09:45 | NUR ---
HEPARIN SQ GIVEN. TOLERATING WELL.
[2023-03-05] MEDS: MORPHINE SULFATE 4 MG/ML SYR IVP PRN (10:00)
--- NOTE | 2023-03-05 10:00 | NUR ---
PRN MORPHINE IVP GIVEN MODESTO LUJAN TOLERATING WELL.
--- NOTE | 2023-03-05 12:49 | NUR ---
SEEN BY DR. LOW.
--- NOTE | 2023-03-05 16:00 | NUR ---
IV ROCEPHIN WAS NOT GIVEN D/T IV LEAKING. PT TO BE DISCHARGE. MADE AWARE.
--- NOTE | 2023-03-05 16:12 | NUR ---
PT LEFT. DISCHARGE TO HOME. TRANSPORTED BY PRIVATE VEHICLE. AMBULATORY. ALERT AND ORIENTED X 4. RESP. EVEN AND UNLABORED. WITH SKIN CONDITION FOLLOWS. 3 INCISION TO ABDOMEN. NO BLEEDING, NO REDNESS, NO DRAINAGE NOTED. NO C/O PAIN OR DISCOMFORT. REMAINS STABLE. Addendum: 03/05/23 at 1811 by CAMERON ROSSI LVN ID BAND AND IV REMOVED. DISCHARGED PAPERWORK, DISCUSS AND SIGNED BY PT.
== END 2023-03-05 16:12 | disposition home or self-care (01) | DRG 234 ==
LOC: MED 02:00 → MTU 14:10
PROVIDERS: ADMIT Student in an Organized Health Care Education/Training Program; ATTEND Student in an Organized Health Care Education/Training Program
PROC: 0DTJ4ZZ Resection of Appendix, Percutaneous Endoscopic Approach (ICD-10-PCS; principal; 2023-03-04 10:00)
DX: K35.80 Unspecified acute appendicitis (principal); R65.10 Systemic inflammatory response syndrome (SIRS) of non-infectious origin without acute organ dysfunction; E86.1 Hypovolemia; Z20.822 Contact with and (suspected) exposure to COVID-19; Z82.49 Family history of ischemic heart disease and other diseases of the circulatory system; Z90.49 Acquired absence of other specified parts of digestive tract
CPT/HCPCS: 36415; 80053; 81001; 82374; 83690; 85025; 87040; 87081; 87086; 96361; 96365; 96375; 96376; 99285; J0330; J0696; J1170; J1644; J1885; J2001; J2270; J2405; J2543; J2704; J2710; J3010; J3490; J7060; J7120